=== PATIENT | female | born 1980 ===

== ENCOUNTER 2020-04-08 08:14 | Emergency (ER) | payer OTHER ==
[~2020-04-08] VITALS: Ht 170.2 cm; Wt 79.4 kg
[2020-04-08] MEDS ORDERED: ROBAXIN-750750 MG PO (09:43)
[2020-04-08] MEDS ORDERED: IBU600 MG PO (09:43)
== END 2020-04-08 09:49 | disposition home or self-care (01) ==
LOC: ER 08:14
DX: S13.4XXA Sprain of ligaments of cervical spine, initial encounter (principal); M62.830 Muscle spasm of back; V43.52XA Car driver injured in collision with other type car in traffic accident, initial encounter; Y93.89 Activity, other specified; Y92.488 Other paved roadways as the place of occurrence of the external cause; Y99.8 Other external cause status